=== PATIENT | male | born 1935 | race Two or more races ===

== ENCOUNTER → 2017-02-01 | Emergency (ER) | payer OTHER ==
[~2017-02-01] VITALS: Ht 182.9 cm; Wt 79.8 kg
[~2017-02-01] MED LIST: ATENOLOL25 MG; ATENOLOL50 MG PO; CALTRATE 600 W-1 TAB; CALTRATE 600600 MG PO; CELEBREX100 MG PO; CIALIS10 MG; CIPRO500 MG PO; COUMADIN2 MG PO; CYMBALTA60 MG; FOSAMAX PLUS; FOSAMAX70 MG PO; GLUCOPHAGE XR500 MG; LANZOPRAZOLE; LIPITOR40 MG; LYRICA50 MG PO; MAGNESIA; METFORMIN HCL500 MG; NAMENDA XR28 MG; NEURONTIN300 MG; ORPH100T PO; PRADAXA; RIVASTIGMINE1 EACH; SYMAX-SR0.375 MG PO; TENORMIN50 MG; TOPROL XL25 M1; TRICOR145 MG; TRICOR145 MG PO; UNISON; VISTARIL50 MG PO; VYTORIN 10-40 M1 TAB; VYTORIN 10/40 M1 TAB PO; XARELTO20 MG; XARELTO20 MG PO; [UNRECOGNIZED DRUG - OTHER]
== END | disposition home or self-care (01) ==
LOC: ER 10:57
DX: S09.90XA Unspecified injury of head, initial encounter (principal); R55 Syncope and collapse; W18.39XA Other fall on same level, initial encounter; Y93.E8 Activity, other personal hygiene; Y92.89 Other specified places as the place of occurrence of the external cause; Y99.8 Other external cause status

== ENCOUNTER 2018-05-02 09:33 | Emergency (ER) | payer OTHER ==
[~2018-05-02] VITALS: Ht 182.9 cm; Wt 83.9 kg
== END 2018-05-02 13:55 | disposition home or self-care (01) ==
LOC: ER 09:33
DX: S30.0XXA Contusion of lower back and pelvis, initial encounter (principal); S70.02XA Contusion of left hip, initial encounter; S70.01XA Contusion of right hip, initial encounter; G30.8 Other Alzheimer's disease; F02.80 Dementia in other diseases classified elsewhere, unspecified severity, without behavioral disturbance, psychotic disturbance, mood disturbance, and anxiety; W18.09XA Striking against other object with subsequent fall, initial encounter; Y93.89 Activity, other specified; Y92.018 Other place in single-family (private) house as the place of occurrence of the external cause; Y99.8 Other external cause status

== ENCOUNTER 2018-05-24 13:18 | Emergency (ER) | payer OTHER ==
[~2018-05-24] VITALS: Ht 172.7 cm; Wt 81.6 kg
== END 2018-05-24 15:52 | disposition home or self-care (01) ==
LOC: ER 13:18
DX: I16.0 Hypertensive urgency (principal); I10 Essential (primary) hypertension; G30.8 Other Alzheimer's disease; F02.80 Dementia in other diseases classified elsewhere, unspecified severity, without behavioral disturbance, psychotic disturbance, mood disturbance, and anxiety

== ENCOUNTER 2018-07-26 11:00 | Inpatient (IN) | payer OTHER ==
[~2018-07-26] VITALS: Ht 182.9 cm; Wt 86.2 kg
[2018-07-26] MEDS ORDERED: GABAPENTIN300 MG PO (15:07)
[2018-07-26] MEDS ORDERED: METOPROLOL SUCC25 MG PO (15:08)
[2018-07-26] MEDS ORDERED: GALANTAMINE HBR24 MG PO (15:08)
[2018-07-26] MEDS ORDERED: SERTRALINE HCL50 MG PO (15:08)
[2018-07-26] MEDS ORDERED: ATIVAN1 MG PO (15:10)
[2018-08-03] MEDS ORDERED: DILTIAZEM HCL30 MG PO (12:31)
[2018-08-03] MEDS ORDERED: SERTRALINE HCL50 MG PO (12:31)
[2018-08-03] MEDS ORDERED: GALANTAMINE HBR24 MG PO (12:31)
[2018-08-03] MEDS ORDERED: XARELTO20 MG PO (12:31)
[2018-08-03] MEDS ORDERED: METOPROLOL SUCC25 MG PO (12:31)
[2018-08-03] MEDS ORDERED: ATIVAN1 MG PO (12:31)
[2018-08-03] MEDS ORDERED: PEPCID20 MG PO (12:31)
[2018-08-03] MEDS ORDERED: NAMENDA10 MG PO (12:31)
[2018-08-03] MEDS ORDERED: GABAPENTIN300 MG PO (12:31)
== END 2018-08-07 14:23 | DRG 177 ==
LOC: ER 11:00 → SEC-K 13:38 → MEDI 13:38
PROVIDERS: ADMIT Internal Medicine Geriatric Medicine
PROC: 4A12X4Z Monitoring of Cardiac Electrical Activity, External Approach (ICD-10-PCS; principal; 2018-07-26)
PROC: 4A033R1 Measurement of Arterial Saturation, Peripheral, Percutaneous Approach (ICD-10-PCS; 2018-07-26)
PROC: 0T9B70Z Drainage of Bladder with Drainage Device, Via Natural or Artificial Opening (ICD-10-PCS; 2018-07-26)
PROC: 02HV33Z Insertion of Infusion Device into Superior Vena Cava, Percutaneous Approach (ICD-10-PCS; 2018-07-27)
PROC: B246ZZZ Ultrasonography of Right and Left Heart (ICD-10-PCS; 2018-07-27)
PROC: 0DH67UZ Insertion of Feeding Device into Stomach, Via Natural or Artificial Opening (ICD-10-PCS; 2018-07-27)
PROC: 3E0G76Z Introduction of Nutritional Substance into Upper GI, Via Natural or Artificial Opening (ICD-10-PCS; 2018-07-27)
DX: J69.0 Pneumonitis due to inhalation of food and vomit (principal); A41.9 Sepsis, unspecified organism; T17.898A Other foreign object in other parts of respiratory tract causing other injury, initial encounter; E87.0 Hyperosmolality and hypernatremia; N39.0 Urinary tract infection, site not specified; I96 Gangrene, not elsewhere classified; Z74.01 Bed confinement status; E86.0 Dehydration; E87.8 Other disorders of electrolyte and fluid balance, not elsewhere classified; I48.2 Chronic atrial fibrillation; Z79.01 Long term (current) use of anticoagulants; G30.0 Alzheimer's disease with early onset; F02.80 Dementia in other diseases classified elsewhere, unspecified severity, without behavioral disturbance, psychotic disturbance, mood disturbance, and anxiety; Z66 Do not resuscitate; D72.828 Other elevated white blood cell count; Z79.84 Long term (current) use of oral hypoglycemic drugs; E78.00 Pure hypercholesterolemia, unspecified; R63.0 Anorexia; I10 Essential (primary) hypertension; L89.151 Pressure ulcer of sacral region, stage 1; E11.40 Type 2 diabetes mellitus with diabetic neuropathy, unspecified; R13.12 Dysphagia, oropharyngeal phase